=== PATIENT | male | born 1945 | race Caucasian/White ===

== ENCOUNTER → 2021-09-12 12:48 | Outpatient (CLI) | payer MEDICARE, OTHER, SELFPAY ==
--- NOTE | 2021-09-12 | DI.MRI.S_ITS ---
PROCEDURE: MR KNEE RT WO CON INDICATIONS: Unilateral primary osteoarthritis, right knee. No history of prior surgery. TECHNIQUE: Noncontrast sagittal PD fast spin echo and T2 fast spin echo with fat saturation, sagittal 3-D FLASH with fat saturation; coronal T1 spin echo and PD fast spin echo with fat saturation, and axial PD fast spin echo with fat saturation through the knee. COMPARISON: [facility] [place], CR, XR KNEE 4+ VIEWS RIGHT, 07/27/2021, 16:17. FINDINGS: Image quality: Excellent. Menisci: Truncation of the free edge of the medial meniscal body and posterior horn is present, indicating radial tearing. Linear oblique and amorphous high signal intensity within the medial meniscal body and posterior horn is present, demonstrating inferior articular surface extension, indicating complex tearing. Lateral meniscus is intact. Cruciate ligaments: The anterior and posterior cruciate ligaments appear intact. Medial structures: The medial collateral ligament appears intact. Visualized portions of the pes anserinus tendons appear normal. No abnormal bursal fluid. Lateral structures: The lateral collateral ligament, long and short heads of the biceps femoris tendon appear intact. The popliteus tendon appears normal. Iliotibial band appears normal. Anterior structures: The quadriceps and patellar tendons appear intact. Patellar alignment is normal. No femoral trochlear dysplasia or ventral trochlear prominence. No edema in the infrapatellar fat pad. Bones and cartilage: No displaced fracture. Subchondral low T1/high STIR signal intensity within the posterior weight-bearing aspect of the medial femoral condyle is present, indicating osteochondral injury. Moderate tricompartmental periarticular osteophyte formation. Severe articular cartilage loss diffusely overlies the weight-bearing aspects of the medial femoral condyle and medial tibial plateau. Severe articular cartilage loss overlies the lateral patellar facet. Joint space: There is a moderate knee joint effusion, a small ganglion cyst along the popliteus, and a trace Nam's cyst. Normal appearing synovial plicae are incidentally noted. IMPRESSION: 1. Tricompartmental osteoarthritis with associated articular cartilage loss. 2. Osteochondral injury involving the medial femoral condyle. 3. Complex tearing of the medial meniscus. 4. Knee joint effusion, ganglion cyst along the popliteus. Dictated by: Alejandra Barahona M.D. on 09/12/2021 at 14:44 Approved by: Alejandra Barahona M.D. on 09/12/2021 at 15:55
== END ==
PROVIDERS: PCP Nurse Practitioner Family; Referring Provider Orthopaedic Surgery; Visit Provider Orthopaedic Surgery
DX: S83.231A Complex tear of medial meniscus, current injury, right knee, initial encounter (principal); S89.81XA Other specified injuries of right lower leg, initial encounter; M17.11 Unilateral primary osteoarthritis, right knee; M25.461 Effusion, right knee; M67.461 Ganglion, right knee
CPT/HCPCS: 73721